=== PATIENT | female | born 1960 | race Caucasian/White ===

== ENCOUNTER 2019-04-20 08:50 | Observation (INO) | payer BC ==
[2019-04-20] MEDS ORDERED: ASPIRIN 81 MG PO STA (09:11)
[2019-04-20] MEDS ORDERED: SODIUM CHLORIDE 0.9% 1,000 ML IV STA (09:11)
[2019-04-20] MEDS ORDERED: NITROGLYCERIN SL TABS 0.4 MG TAB SUBLINGUAL STA (09:11)
[2019-04-20 09:35] LABS: Basophils # (A) 0.1 k/uL (0-0.2); Basophils % (A) 1 %; Eosinophils # (A) 0.2 k/uL (0-0.7); Eosinophils % (A) 2 %; HCT 42.5 % (34.0-46.0); HGB 14.1 gm/dL (11.4-16.0); Lymphocytes # (A) 1.7 k/uL (1.0-4.8); Lymphocytes % (A) 20 %; MCH 29.4 pg (25.0-35.0); MCHC 33.3 g/dL (31.0-37.0); MCV 88.4 fL (80.0-100.0); Monocytes # (A) 0.4 k/uL (0-1.0); Monocytes % (A) 4 %; Neutrophils # (A) 5.9 k/uL (1.3-7.7); Neutrophils % (A) 71 %; Platelet Count 314 k/uL (150-450); RBC 4.81 m/uL (3.80-5.40); RDW 12.6 % (11.5-15.5); WBC 8.3 k/uL (3.8-10.6)
[2019-04-20 09:50] LABS: INR 0.9 (<1.2); Prothrombin Time 9.5 sec (9.0-12.0)
[2019-04-20 09:52] LABS: ALT 27 U/L (4-34); AST 30 U/L (14-36); African American GFR (CKD) >90 (>60 ml/min/1.73 sqM); Albumin 4.4 g/dL (3.5-5.0); Alkaline Phosphatase 66 U/L (38-126); Anion Gap 8 mmol/L; Blood Urea Nitrogen 16 mg/dL (7-17); Calcium 9.7 mg/dL (8.4-10.2); Carbon Dioxide 26 mmol/L (22-30); Chloride 105 mmol/L (98-107); Creatine Kinase 124 U/L (30-135); Glucose 126 mg/dL (74-99); Non-African American GFR(CKD) >90 (>60 ml/min/1.73 sqM); Potassium 4.4 mmol/L (3.5-5.1); Sodium 139 mmol/L (137-145); Total Bilirubin 0.6 mg/dL (0.2-1.3)
--- NOTE | 2019-04-20 10:00 | XR ---
EXAMINATION TYPE: XR chest 2V DATE OF EXAM: 04/20/2019 COMPARISON: NONE HISTORY: Left-sided chest pain and extremity weakness TECHNIQUE: Frontal and lateral views of the chest are obtained. FINDINGS: There is no focal air space opacity, pleural effusion, or pneumothorax seen. The cardiac silhouette size is within normal limits. The osseous structures are intact. Mild multilevel degener ative change of the spine. IMPRESSION: No acute cardiopulmonary process.
--- NOTE | 2019-04-20 11:23 | ED ---
Chest Pain HPI - General Chief Complaint: Chest Pain Stated Complaint: Chest pain Time Seen by Provider: 04/20/19 09:03 Source: patient, RN notes reviewed Mode of arrival: wheelchair Limitations: no limitations - History of Present Illness Initial Comments: This is a 58-year-old female with a benign past History and no family history of heart disease and her age range who presents with complaints of the onset last evening of retrosternal chest pressure [id number] in severity with some radiation down her left arm. She states it got better throughout the afternoon and evening but then recurred again this morning. She presented with mild 5/10 pain she said last night was 7 and 8/10. Of note he did go away shortly after arrival in emergency department prior to any medications being given. 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 She is a nonsmoker. No known lung disease. He had no fevers chills sweats cough or other symptoms. MD Complaint: chest pain - Related Data Allergies Allergy/AdvReac Type Severity Reaction Status Date / Time sulfamethoxazole Allergy Unknown Verified 04/20/19 08:59 [From Bactrim] trimethoprim [From Bactrim] Allergy Unknown Verified 04/20/19 08:59 Review of Systems ROS Statement: Those systems with pertinent positive or pertinent negative responses have been documented in the HPI. ROS Other: All systems not noted in ROS Statement are negative. EKG Findings - EKG Results: EKG: interpreted by EMMANUEL JENKINS, sinus rhythm, normal axis, normal QRS, normal ST/T, no acute changes (Normal sinus rhythm a 68 AL interval 1:30 QRS duration 72 QT since QTC 44/[address]-T wave changes) Past Medical History Past Medical History: Hyperlipidemia History of Any Multi-Drug Resistant Organisms: None Reported Past Surgical History: Breast Surgery, Hysterectomy, Tonsillectomy Past Psychological History: No Psychological Hx Reported Smoking Status: Never smoker Past Alcohol Use History: Occasional Past Drug Use History: None Reported General Exam - General Exam Comments Initial Comments: This is a well-developed well-nourished awake alert oriented 3 female Limitations: no limitations General appearance: alert, in no apparent distress Head exam: Present: atraumatic, normocephalic, normal inspection Eye exam: Present: normal appearance, PERRL, EOMI. Absent: scleral icterus, conjunctival injection, periorbital swelling ENT exam: Present: normal exam, mucous membranes moist Neck exam: Present: normal inspection, full ROM, other (No stridor JVD or bruits). Absent: tenderness, meningismus, lymphadenopathy Respiratory exam: Present: normal lung sounds bilaterally. Absent: respiratory distress, wheezes, rales, rhonchi, stridor Cardiovascular Exam: Present: regular rate, normal rhythm, normal heart sounds. Absent: systolic murmur, diastolic murmur, rubs, gallop, clicks GI/Abdominal exam: Present: soft, normal bowel sounds. Absent: distended, tenderness, guarding, rebound, rigid, bruit, pulsatile mass Extremities exam: Present: normal inspection, full ROM, normal capillary refill. Absent: tenderness, pedal edema, joint swelling, calf tenderness Back exam: Present: normal inspection Neurological exam: Present: alert, oriented X3, CN II-XII intact Psychiatric exam: Present: normal affect, normal mood Skin exam: Present: warm, dry, intact, normal color. 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 Patient was reevaluated several occasions she had no further chest pain to report but then later did state she has some mild pressure. In light of the presentation which is suspicious for angina she will be admitted I did discuss this with her and her were in agreement. I did discuss the case also with Dr. Mcdonald. Disposition Clinical Impression: Chest pain, Unstable angina pectoris Disposition: ADMITTED IP TO THIS [facility] Condition: Stable Referrals: Eric Thomson MD [Primary Care Provider] - 1-2 days
[2019-04-20] MEDS ORDERED: NITROGLYCERIN SL TABS 0.4 MG TAB SUBLINGUAL PRN (11:27)
[2019-04-20] MEDS ORDERED: HEPARIN SODIUM,PORCINE 5,000 UNIT/ML 1 ML VIAL IV ONE (11:27)
[2019-04-20] MEDS ORDERED: HEPARIN SOD,PORK IN 0.45% NACL 25,000 UNIT in 0.45% NACL 1 250ML.BAG IV SCH (11:30)
[2019-04-20] MEDS: NITROGLYCERIN OINT 1 INCH/GM PACKET TOPICAL SCH ×2 (12:53→17:35)
[2019-04-20] MEDS ORDERED: ACETAMINOPHEN TAB 325 MG TAB PO STA (19:56)
[2019-04-20] MEDS ORDERED: RX INFO: IV CONTRAST WAS GIVEN 1 EACH MISC MISCELLANE PRN (21:46)
--- NOTE | 2019-04-20 21:46 | P.HPIM ---
History of Present Illness H&P Date: 04/20/19 Chief Complaint: Chest pain History of presenting complaint: This is a very pleasant 58-year-old patient of Dr. Eric Thomson. Rather unremarkable postoperative history except patient has factor V [place] mutation for which she takes a baby aspirin. 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 This lasted for a short time. Subsequently she went home and went to bed felt okay. This morning she when she got up she felt some numbness in the left arm and the neck. Yesterday she had felt some perspiration. There is no dizziness lightheadedness or shortness of breath. Given injection of symptoms she decided to come in. Otherwise patient rather active and walks quite a bit. No prior cardiac history. Review of systems: GEN.: None EYES: None HEENT: None NECK: None RESPIRATORY: None CARDIOVASCULAR: As above GASTROINTESTINAL: None GENITOURINARY: None MUSCULOSKELETAL: None LYMPHATICS: None HEMATOLOGICAL: None PSYCHIATRY: None NEUROLOGICAL: None Past medical history to include: Factor V Leyden mutation Social history: . Does not smoke.: Occasionally. Family history: Reviewed, noncontributory to presentation Physical examination: VITAL SIGNS: 97.8, 78, 18, 124/70, 95% room air GENERAL: BMI 26.6, sitting up in bed comfortable laying in bed watching te levision. EYES: Pupils equal. Conjunctiva normal. HEENT: External appearance of nose and ears normal, oral cavity grossly normal. NECK: JVD not raised; masses not palpable. HEART: First and second heart sounds are normal; no edema. LUNGS: Respiratory rate normal; clear to auscultation. ABDOMEN: Soft, nontender, liver spleen not palpable, no masses palpable. PSYCH: Alert and oriented x3; mood and affect normal. NEUROLOGICAL: Cranial nerves grossly intact; no facial asymmetry, power and sensation grossly intact. LYMPHATICS: No lymph nodes palpable in the axilla and neck INVESTIGATIONS, reviewed in the clinical context: White count 8.3 bun 40.1 platelets 314 potassium 4.4 creatinine 0.69 Troponin I 2 negative EKG tracing personally reviewed by me-normal sinus rhythm Chest x-ray film personally reviewed by me-lung davis are clear Assessment: -This is a patient is a 2 days of intermittent chest pain with some radiation of the left arm back. Troponins are negative. EKG is unremarkable. Need to rule out underlying ischemia. -We'll rule out a PE. Plan: Patient aspirin and Nitropaste. computed tomography scan to rule out PE. Cardiology is consulted. Care was discussed with the patient. Past Medical History Past Medical History: Hyperlipidemia Additional Past Medical History / Comment(s): leiden factor 5 History of Any Multi-Drug Resistant Organisms: None Reported Past Surgical History: Breast Surgery, Hysterectomy, Tonsillectomy Past Anesthesia/Blood Transfusion Reactions: No Reported Reaction Past Psychological History: No Psychological Hx Reported Smoking Status: Never smoker Past Alcohol Use History: Occasional Past Drug Use History: None Reported - Past Family History Mother Family Medical History: No Reported History Medications and Allergies Home Medications Medication Instructions Recorded Confirmed Type Aspirin EC [Ecotrin Low Dose] 81 mg PO DAILY 04/20/19 04/20/19 History L.acidoph,Paracasei, B.lactis 1 cap PO DAILY 04/20/19 04/20/19 History [Probiotic] Multivitamins, Thera [Multivitamin 1 tab PO DAILY 04/20/19 04/20/19 History (formulary)] Allergies Allergy/AdvReac Type Severity Reaction Status Date / Time sulfamethoxazole Allergy Unknown Verified 04/20/19 13:38 [From Bactrim] trimethoprim [From Bactrim] Allergy Unknown Verified 04/20/19 11:42 Physical Exam Vitals: Vital Signs Temp Pulse Pulse Pulse Resp BP BP 04/20/19 20:00 97.8 F 78 18 124/70 04/20/19 15:39 97.6 F 77 18 124/67 04/20/19 13:29 97.5 F L 64 18 04/20/19 12:55 68 18 129/76 04/20/19 11:00 56 L 16 127/67 04/20/19 10:00 61 15 121/74 04/20/19 09:34 67 67 18 121/74 04/20/19 09:10 60 15 158/78 04/20/19 08:56 97.5 F L 71 16 179/83 BP Pulse Ox 04/20/19 20:00 95 04/20/19 15:39 97 04/20/19 13:29 137/77 99 04/20/19 12:55 98 04/20/19 11:00 100 04/20/19 10:00 100 04/20/19 09:34 99 04/20/19 09:10 100 04/20/19 08:56 97 Intake and Output 04/20/19 04/20/19 04/20/19 06:59 14:59 22:59 Other: Voiding Method Toilet Weight 72.575 kg Results CBC & Chem 7: 04/20/19 09:14 04/20/19 09:14 Labs: Abnormal Lab Results - Last 24 Hours (Table) 04/20/19 Range/Units 09:14 Glucose 126 H (74-99) mg/dL Thrombosis Risk Factor Assmnt - Choose All That Apply Any of the Below Risk Factors Present?: Yes Each Factor Represents 1 point: Age 41-60 years, Obesity (BMI >25) Thrombosis Risk Factor Assessment Total Risk Factor Score: 2 Thrombosis Risk Factor Assessment Level: Low Risk
--- NOTE | 2019-04-20 22:27 | CT ---
EXAMINATION TYPE: CT angio chest DATE OF EXAM: 04/20/2019 COMPARISON: None HISTORY: Chest pain and bilateral arm numbness. CT DLP: 313.6 mGycm Automated exposure control for dose reduction was used. CONTRAST: Performed with IV Contrast, patient injected with 68ml mL of Isovue 370. Multiple axial sections were obtained from the thoracic inlet to the diaphragm with intravenous contr ast Isovue 68 mL. FINDINGS: There are 3-D post processed images. There is mild subsegmental atelectasis at the posterior lung bases. Heart size is normal. There is no pericardial effusion. There are no hilar masses. There is no mediastinal adenopathy. There is normal contrast opacification of the pulmonary arteries. There are no filling defects. Thoracic aorta is intact. There is no aneurysm or dissection. The bony thorax appears intact. Impression no evidence of pulmonary embolism. Mild subsegmental atelectasis at the posterior lung bases.
[2019-04-21] MEDS: NITROGLYCERIN OINT 1 INCH/GM PACKET TOPICAL SCH ×2 (00:26→04:24)
[2019-04-21 04:07] LABS: Cholesterol 237 mg/dL (<200); HDL Cholesterol 49 mg/dL (40-60); LDL Cholesterol,Calculated 142 mg/dL (0-99); Triglycerides 232 mg/dL (<150)
[2019-04-21] MEDS ORDERED: ASPIRIN 325 MG TAB PO SCH (09:00)
--- NOTE | 2019-04-21 10:10 | P.CRDCN ---
History of Present Illness History of present illness: HISTORY OF PRESENTING ILLNESS This is a pleasant 58-year-old female past medical history significant for endometrial cancer status post hysterectomy 2018 and dyslipidemia. 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 We have been asked to see in consultation for chest pain. States her symptoms began 2 days ago while she was at work. 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 Throughout the course of the day she started feeling intermittent episodes of diaphoresis and generalized allover hot flashes. She also felt excessively fatigued which is abnormal for her and she had also had a decent night's sleep the night before. As the afternoon when she started to develop pressure in her chest that radiated through to the back and into the bilateral upper shoulder blades. This was not associated with activity or exe rtion. Her symptoms were rather constant through the evening however she was able to fall asleep without difficulty. She woke up on Thursday morning with a numb sensation in the left arm that radiated up into the left shoulder and the left neck. She denies ever having had any associated shortness of breath, dizziness, nausea, vomiting or palpitations. She had no further symptoms of chest discomfort however given the symptoms during the previous day she came in for further evaluation. She is seen and examined resting comfortably in no acute distress. Her symptoms have all completely resolved. She does exercise by walking regularly and denies exertional chest pain. DIAGNOSTICS EKG reveals sinus mechanism with no acute ST or T wave abnormalities noted. Chest xray negative for an acute cardiopulmonary process. Laboratory reviewed, CBC unremarkable, sodium 139, potassium 4.4, creatinine 0.69, magnesium 2.0, cardiac enzymes negative 3, NT proBNP 110, LDL 142, HDL 49, triglycerides 232 and total cholesterol 237. Current cardiac medications include aspirin 81 mg daily. REVIEW OF SYSTEMS At the time of my exam: CONSTITUTIONAL: Denies fever or chills. CARDIOVASCULAR: Denies chest pain, shortness of breath, orthopnea, PND or palpitations. RESPIRATORY: Denies cough. GASTROINTESTINAL: Denies abdominal pain, diarrhea, constipation, nausea or vomiting. MUSCULOSKELETAL: Denies myalgias. NEUROLOGIC: Denies numbness, tingling or weakness. ENDOCRINE: Denies fatigue, weight change, polydipsia or polyurina. GENITOURINARY: Denies burning, hematuria or urgency with micturation. HEMATOLOGIC: Denies history of anemia or bleeding. PHYSICAL EXAMINATION Blood pressure 126/69 heart rate 68 afebrile and maintaining oxygen saturation on room air. CONSTITUTIONAL: No apparent distress. HEENT: Head is normocephalic. Pupils are equal, round. Sclerae anicteric. Mucous membranes of the mouth are moist. No JVD. No carotid bruit. CHEST EXAMINATION: Lungs are clear to auscultation. No chest wall tenderness is noted on palpation or with deep breathing. HEART EXAMINATION: Regular rate and rhythm. S1, S2 heard. No murmurs, gallops or rub. ABDOMEN: Soft, nontender. Positive bowel sounds. EXTREMITIES: 2+ peripheral pulses, no lower extremity edema and no calf tenderness. NEUROLOGIC EXAMINATION: Patient is awake, alert and oriented x3. ASSESSMENT Chest pain, atypical. An acute coronary event has been ruled out. Dyslipidemia PLAN An acute coronary event has been ruled out. Perform stress echocardiogram to assess her stress induced cardiac ischemia. Lifestyle modifications discussed and recommended for lowering of LDL cholesterol, optimally less than 100. Advised patient to reassess her lipid profile in 3 months. If stress test is normal she is stable for discharge from a cardiac perspective. Thank you kindly for this consultation. Nurse Practitioner note has been reviewed, I agree with a documented findings and plan of care. Patient was seen and examined. Past Medical History Past Medical History: Hyperlipidemia Additional Past Medical History / Comment(s): leiden factor 5 History of Any Multi-Drug Resistant Organisms: None Reported Past Surgical History: Breast Surgery, Hysterectomy, Tonsillectomy Past Anesthesia/Blood Transfusion Reactions: No Reported Reaction Past Psychological History: No Psychological Hx Reported Smoking Status: Never smoker Past Alcohol Use History: Occasional Past Drug Use History: None Reported - Past Family History Mother Family Medical History: No Reported History Medications and Allergies Home Medications Medication Instructions Recorded Confirmed Type Aspirin EC [Ecotrin Low Dose] 81 mg PO DAILY 04/20/19 04/20/19 History L.acidoph,Paracasei, B.lactis 1 cap PO DAILY 04/20/19 04/20/19 History [Probiotic] Multivitamins, Thera [Multivitamin 1 tab PO DAILY 04/20/19 04/20/19 History (formulary)] Allergies Allergy/AdvReac Type Severity Reaction Status Date / Time sulfamethoxazole Allergy Unknown Verified 04/20/19 13:38 [From Bactrim] trimethoprim [From Bactrim] Allergy Unknown Verified 04/20/19 11:42 Physical Exam Vitals: Vital Signs Temp Pulse Pulse Pulse Resp BP BP 04/21/19 07:43 97.8 F 68 16 126/69 04/21/19 03:48 97.5 F L 69 16 120/71 04/20/19 23:33 97.5 F L 73 17 125/71 04/20/19 20:00 97.8 F 78 18 124/70 04/20/19 15:39 97.6 F 77 18 124/67 04/20/19 13:29 97.5 F L 64 18 04/20/19 12:55 68 18 129/76 04/20/19 11:00 56 L 16 127/67 04/20/19 10:00 61 15 121/74 04/20/19 09:34 67 67 18 121/74 04/20/19 09:10 60 15 158/78 04/20/19 08:56 97.5 F L 71 16 179/83 BP Pulse Ox 04/21/19 07:43 98 04/21/19 03:48 97 04/20/19 23:33 96 04/20/19 20:00 95 04/20/19 15:39 97 04/20/19 13:29 137/77 99 04/20/19 12:55 98 04/20/19 11:00 100 04/20/19 10:00 100 04/20/19 09:34 99 04/20/19 09:10 100 04/20/19 08:56 97 Intake and Output 04/20/19 04/21/19 04/21/19 22:59 06:59 14:59 Other: Voiding Method Toilet Toilet # Voids 2 1 Results 04/20/19 09:14 04/20/19 09:14 Cardiac Enzymes 04/20/19 04/20/19 04/20/19 Range/Units 09:14 09:14 15:43 AST 30 (14-36) U/L Troponin I <0.012 <0.012 (0.000-0.034) ng/mL 04/20/19 Range/Units 21:01 AST (14-36) U/L Troponin I <0.012 (0.000-0.034) ng/mL Coagulation 04/20/19 Range/Units 09:14 PT 9.5 (9.0-12.0) sec APTT 24.0 (22.0-30.0) sec Lipids 04/20/19 Range/Units 09:14 Triglycerides 232 H (<150) mg/dL Cholesterol 237 H (<200) mg/dL HDL Cholesterol 49 (40-60) mg/dL CBC 04/20/19 Range/Units 09:14 WBC 8.3 (3.8-10.6) k/uL RBC 4.81 (3.80-5.40) m/uL Hgb 14.1 (11.4-16.0) gm/dL Hct 42.5 (34.0-46.0) % Plt Count 314 (150-450) k/uL Comprehensive Metabolic Panel 04/20/19 Range/Units 09:14 Sodium 139 (137-145) mmol/L Potassium 4.4 (3.5-5.1) mmol/L Chloride 105 (98-107) mmol/L Carbon Dioxide 26 (22-30) mmol/L BUN 16 (7-17) mg/dL Creatinine 0.69 (0.52-1.04) mg/dL Glucose 126 H (74-99) mg/dL Calcium 9.7 (8.4-10.2) mg/dL AST 30 (14-36) U/L ALT 27 (4-34) U/L Alkaline Phosphatase 66 (38-126) U/L Total Protein 7.0 (6.3-8.2) g/dL Albumin 4.4 (3.5-5.0) g/dL Current Medications Generic Name Dose Route Start Last Admin Trade Name Freq PRN Reason Stop Dose Admin Aspirin 325 mg 04/21/19 09:00 Aspirin PO DAILY ROHINI Miscellaneous Information 1 each 04/20/19 21:46 Rx Info: Iv Contrast Was Given MISCELLANE 04/22/19 21:46 DAILY PRN Per Protocol Nitroglycerin 0.4 mg 04/20/19 11:27 Nitrostat SUBLINGUAL Q5M PRN Chest Pain Nitroglycerin 1 inch 04/20/19 12:00 04/21/19 04:24 Nitro-Bid Oint TOPICAL Not Given Q6HR ROHINI Intake and Output 01/29/20 01/30/20 01/30/20 22:59 06:59 14:59 Other: Voiding Method Toilet Toilet # Voids 2 1 04/20/19 09:14 04/20/19 09:14
[2019-04-21 11:16] VITALS: BP 118/71; RESP 18; TEMP 97.6
[2019-04-21 12:12] VITALS: PULSE 69
--- NOTE | 2019-04-21 22:21 | P.DS ---
Providers Date of admission: 04/20/19 11:25 Expected date of discharge: 04/21/19 Attending physician: Kalen Mcdonald Consults: 04/20/19 11:27 Consult Physician Urgent Consulting Provider: Cornelio Branham Consult Reason/Comments: Angina, chest pain Do you want consulting provider notified?: Yes Primary care physician: Eric Thomson MD Hospital Course: Chief Complaint: Chest pain History of presenting complaint: This is a very pleasant 58-year-old patient of Dr. Eric Thomson. Rather unremarkable postoperative history except patient has factor V [place] mutation for which she takes a baby aspirin. 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 This lasted for a short time. Subsequently she went home and went to bed felt okay. This morning she when she got up she felt some numbness in the left arm and the neck. Yesterday she had felt some perspiration. There is no dizziness lightheadedness or shortness of breath. Given injection of symptoms she decided to come in. Otherwise patient rather active and walks quite a bit. No prior cardiac history. Patient underwent a stress test. I was called with a verbal report from the nurse that stress test was negative. Troponins were negative. Cleared by cardiology. Results conveyed to the patient. Consultation: Dr. Brito from cardiology Physical examination: VITAL SIGNS: 97.6, 62, 18, 11 8/71, 99% room air GENERAL: Sitting up, comfortable EYES: Pupils equal. Conjunctiva normal. HEENT: External appearance of nose and ears normal, oral cavity grossly normal. NECK: JVD not raised; masses not palpable. HEART: First and second heart sounds are normal; no edema. LUNGS: Respiratory rate normal; clear to auscultation. ABDOMEN: Soft, nontender, liver spleen not palpable, no masses palpable. PSYCH: Alert and oriented x3; mood and affect normal. INVESTIGATIONS, reviewed in the clinical context: White count 8.3 bun 40.1 platelets 314 potassium 4.4 creatinine 0.69 Troponin I 2 negative EKG tracing personally reviewed by me-normal sinus rhythm Chest x-ray film personally reviewed by me-lung davis are clear LDL 142 Exercise stress echocardiogram-reported negative by cardiogenic Chest CTA-negative for PE Assessment: -Anterior chest wall pain possibly musculoskeletal Factor V Leyden mutation -PE ruled out Disposition: Home Plan - Discharge Summary Discharge Rx Participant: Yes New Discharge Prescriptions: Continue Multivitamins, Thera [Multivitamin (formulary)] 1 tab PO DAILY Aspirin EC [Ecotrin Low Dose] 81 mg PO DAILY L.acidoph,Paracasei, B.lactis [Probiotic] 1 cap PO DAILY Discharge Medication List Aspirin EC [Ecotrin Low Dose] 81 mg PO DAILY 04/20/19 [History] L.acidoph,Paracasei, B.lactis [Probiotic] 1 cap PO DAILY 04/20/19 [History] Multivitamins, Thera [Multivitamin (formulary)] 1 tab PO DAILY 04/20/19 [History] Follow up Appointment(s)/Referral(s): cardiology, [Other] - 3 Weeks rEic Thomson MD [Primary Care Provider] - 1-2 days Discharge Disposition: HOME SELF-CARE
--- NOTE | 2019-04-22 12:57 | P.STRESS ---
- Stress Test Note Stress Test Results/Findings: Exam Performed: stress echo exercise Exam Date: 04/21/19 Reason for Exam: CP Height: 5 ft 5 in Weight: 72.57 kg Protocol: STRESS ECHO Stage: 3 Duration of Exercise: 9:00 Resting Heart Rate: 70 Resting Blood Pressure: 150/76 Maximum Achieved Heart Rate: 146 Maximum Achieved Blood Pressure: 199/98 85% PMHR: 136 100% PMHR: 160 METS: 10.3 Technologist Comment: Stress Test Results/Findings: This is a 58-year-old female with history of hypercholesterolemia, being evaluated for symptoms of chest pain. Stress data: Baseline EKG showed sinus rhythm with normal AR interval and QRS duration. Blood pressure at rest is 150/76 with pulse rate of 70. Patient walked on the Meño protocol for 9 minutes achieving a maximum heart rate of 146 with a blood pressure 199/98. EKGs taken during and after the stress test did not reveal any significant changes from the baseline. Echo data: Baseline echo images show normal wall motion and thickening. Exercise echo images showed augmentation of wall motion and thickening in all the segments. Final impression: #1. Negative stress test #2. Negative stress echo.
--- NOTE | 2019-04-22 13:58 | ECHOS ---
Stress Test Results/Findings: Exam Performed: stress echo exercise Exam Date: 04/21/19 Reason for Exam: CP Height: 5 ft 5 in Weight: 72.57 kg Protocol: STRESS ECHO Stage: 3 Duration of Exercise: 9:00 Resting Heart Rate: 70 Resting Blood Pressure: 150/76 Maximum Achieved Heart Rate: 146 Maximum Achieved Blood Pressure: 199/98 85% PMHR: 136 100% PMHR: 160 METS: 10.3 Technologist Comment: Stress Test Results/Findings: This is a 58-year-old female with history of hypercholesterolemia, being evaluated for symptoms of chest pain. Stress data: Baseline EKG showed sinus rhythm with normal VA interval and QRS duration. Blood pressure at rest is 150/76 with pulse rate of 70. Patient walked on the Meño protocol for 9 minutes achieving a maximum heart rate of 146 with a blood pressure 199/98. EKGs taken during and after the stress test did not reveal any significant changes from the baseline. Echo data: Baseline echo images show normal wall motion and thickening. Exercise echo images showed augmentation of wall motion and thickening in all the segments. Final impression: #1. Negative stress test #2. Negative stress echo. KAMALJIT
== END 2019-04-21 14:15 | disposition home or self-care (01) ==
LOC: EC 08:50 → 1SOBS 11:25
PROVIDERS: ADMIT Hospitalist; ATTEND Hospitalist
DX: R07.89 Other chest pain (principal); D68.51 Activated protein C resistance; I20.0 Unstable angina; E78.5 Hyperlipidemia, unspecified; Z90.710 Acquired absence of both cervix and uterus; Z85.42 Personal history of malignant neoplasm of other parts of uterus; N95.1 Menopausal and female climacteric states; Z79.82 Long term (current) use of aspirin; Z88.2 Allergy status to sulfonamides; Z79.899 Other long term (current) drug therapy
CPT/HCPCS: 96361 ×2; 96360; 99285; 36415; 93005; 93351; 83880; 80061; 80053; 82550; 83735; 84484; 85025; 85610; 85730; 71046; 71275; G0378 ×2; Q9967